=== PATIENT | female | born 1975 | race African-American/Black ===

== ENCOUNTER → 2021-11-13 | Outpatient (CLI) | payer BC ==
[~2021-11-13] MED LIST: HYDR-2765 PO; OMEP20CA16 PO; ZOLP5TAB5 PO
[2021-11-13 13:24] LABS: BASO # 0.1 x10^3/uL (0.0-0.2); BASO % 1 % (0-3); EOS % 0 % (0-3); HEMATOCRIT 35.1 % (36.0-47.0); HEMOGLOBIN 11.9 g/dL (12.0-15.5); LYMPH # 2.1 x10^3/uL (1.0-4.8); LYMPH % 30 % (24-48); MEAN CORPUSCULAR HEMOGLOBIN 33 pg (25-35); MEAN CORPUSCULAR HGB CONC 34 g/dL (31-37); MEAN CORPUSCULAR VOLUME 98 fL (79-100); MONO # 0.6 x10^3/uL (0.0-1.1); MONO % 8 % (0-9); NEUT # 4.4 x10^3/uL (1.8-7.7); NEUT % 61 % (31-73); PLATELET COUNT 358 x10^3/uL (140-400); RED BLOOD COUNT 3.59 x10^6/uL (3.50-5.40); RED CELL DISTRIBUTION WIDTH 13.7 % (11.5-14.5); WHITE BLOOD COUNT 7.2 x10^3/uL (4.0-11.0)
[2021-11-13 13:33] LABS: PROTHROMBIN TIME PATIENT 12.6 SEC (11.7-14.0)
[2021-11-13 13:44] LABS: ALBUMIN 3.2 g/dL (3.4-5.0); ALBUMIN/GLOBULIN RATIO 0.8 (1.0-1.7); CALCIUM 8.4 mg/dL (8.5-10.1); CREATININE 0.7 mg/dL (0.6-1.0); GFR 108.5; POTASSIUM 3.8 mmol/L (3.5-5.1); TOTAL BILIRUBIN 0.3 mg/dL (0.2-1.0); TOTAL PROTEIN 7.1 g/dL (6.4-8.2)
== END ==
LOC: SURGPAT 12:48
PROVIDERS: ATTEND Specialist
DX: Z01.812 Encounter for preprocedural laboratory examination (principal); K43.6 Other and unspecified ventral hernia with obstruction, without gangrene; E78.00 Pure hypercholesterolemia, unspecified; Z20.822 Contact with and (suspected) exposure to COVID-19; Z79.899 Other long term (current) drug therapy
CPT/HCPCS: 36415; 80053; 85025; 85610; U0003; U0005

== ENCOUNTER 2021-11-18 07:24 | Day surgery (SDC) | payer BC ==
[2021-11-13 13:10] VITALS: BP 137/83
[~2021-11-18] VITALS: Ht 152.4 cm; Wt 71.0 kg
[~2021-11-18 07:24] MED LIST changes: +BUPIVACAINE-EPI 0.5% 30 ML VIAL KIT. ONE; -HYDR-2765 PO; +HYDROmorphone 2 MG/ML INJ. IVP PRN; +IV RINGERS,LACTATED 1000ML 1,000 ML IV SCH; -OMEP20CA16 PO; +PROCHLORPERAZINE 10 MG/2 ML VIAL. IVP PRN; -ZOLP5TAB5 PO; +ceFAZolin SODIUM IV Push 1 GM VIAL. IVP PRN; +fentaNYL PF VIAL 100 MCG/2 ML VIAL IVP PRN
[2021-11-18 07:40] VITALS: BP 126/74
[2021-11-18] MEDS ORDERED: OMEP20CA16 PO (07:52)
[2021-11-18] MEDS ORDERED: ZOLP5TAB5 PO (07:53)
[2021-11-18] MEDS ORDERED: ROCURONIUM 50 MG/5 ML VIAL. ONE ×2 (08:14→10:16)
[2021-11-18] MEDS ORDERED: PROPOFOL 10 MG/ML (20ML) VIAL. IV ONE ×2 (08:14→10:45)
[2021-11-18] MEDS ORDERED: GLYCOPYRROLATE 1 MG/5 ML VIAL. ONE (08:14)
[2021-11-18] MEDS ORDERED: LIDOCAINE 2% PF 5 ML VIAL. ONE (08:14)
[2021-11-18] MEDS ORDERED: DEXAMETHASONE SOD PHOS 4 MG/ML VIAL ONE ×2 (08:14→08:36)
[2021-11-18] MEDS ORDERED: ONDANSETRON PF 4 MG/2 ML VIAL. ONE (08:14)
[2021-11-18] MEDS ORDERED: fentaNYL PF VIAL 100 MCG/2 ML VIAL ONE ×2 (08:15→10:47)
[2021-11-18] MEDS ORDERED: NEOSTIGMINE METHYLSULFATE 5 MG/5 ML SYRINGE. ONE (08:15)
[2021-11-18] MEDS ORDERED: MIDAZOLAM HCL/PF 2 MG/2 ML VIAL. ONE (08:15)
[2021-11-18] MEDS ORDERED: FAMOTIDINE 20 MG/2 ML VIAL ONE (08:38)
--- NOTE | 2021-11-18 09:04 | PREOP HP ---
DATE OF SERVICE: 11/18/2021 HISTORY OF PRESENT ILLNESS: The patient is referred by Dr. Nelson because of a painful mass of the abdomen. We obtained a history, which showed that she noticed in the mirror a mass in the upper abdomen about 2-3 inches above the umbilicus. She then went to a doctor and was told that she had a hernia. She states that it does get larger at times, it hurts and goes down when she lies down. She has not had any indigestion problems with that. PAST MEDICAL HISTORY: Shows normal childhood diseases. She states not to have had abdominal surgery. MEDICATIONS: Takes no medication for any diseases. ALLERGIES: She has no allergies. SOCIAL HISTORY: She does smoke about 2-3 cigarettes a day, but does not smoke more than that; does not use illicit drugs and does not drink alcohol. REVIEW OF SYSTEMS: Negative except for this mass, which is painful at times, she noticed this for a few weeks. It is not going away. PHYSICAL EXAMINATION: GENERAL: Shows an alert female, in no acute distress. HEAD, EYES, EARS, NOSE AND THROAT: Grossly normal. CHEST: Clear bilaterally to auscultation. HEART: Had no murmurs, heaves, friction rubs or thrills and the rate was 75 beats per minute and was regular. ABDOMEN: Soft. There was no organomegaly, no masses and no tenderness except for the epigastrium. On increase in intra-abdominal pressure, you could feel the mass pop out and with pressure, it goes back. This was somewhat painful, but not excruciating. There was no rebound or guarding. It seemed that she did have a mass in the abdomen. I could not totally reduce it, but it did get larger when she did increase the intra-abdominal pressure, but did not completely go away. PELVIC: Was not done. EXTREMITIES: As stated before, the extremities were grossly normal. IMPRESSION: Abdominal wall ventral hernia. PLAN: We will plan to repair this at a time that is satisfactory to her as we have discussed it at length. PEDRO/SAQIB JORGE: Alfreda TID: [id number] MTDChristiana
--- NOTE | 2021-11-18 09:22 | PDOC ---
SURGICAL PROGRESS NOTE DATE: 11/18/21 TIME: 09:22 no change in dictated H&P Vital Signs Vital Signs Date Time Temp Pulse Resp B/P (MAP) Pulse Ox O2 Delivery O2 Flow Rate FiO2 11/18/21 07:43 98.0 82 18 126/74 98 Room Air 98.0 Labs Laboratory Tests Test 11/18/21 07:37 Bedside Urine HCG, Qualitative Hcg negative (Negative) Laboratory Tests Test 11/18/21 07:37 Bedside Urine HCG, Qualitative Hcg negative (Negative) Justicifation of Admission Dx: Justifications for Admission: Justification of Admission Dx: Yes FINA NICOLE MD Nov 18, 2021 09:22
--- NOTE | 2021-11-18 09:25 | PDOC ---
SURGICAL PROGRESS NOTE DATE: 11/18/21 TIME: 09:23 Op Note: Surgeon..........................................Andrea Pre op diag......................................incarcerated ventral hernia Post op diag....................................same Procedure.......................................Repair incarc ventral hernia with mesh Anesthesia......................................general Drains.............................................none Blood loss.......................................10cc Fluids.............................................see anesthesia sheet Condition........................................satisfactory Vital Signs Vital Signs Date Time Temp Pulse Resp B/P (MAP) Pulse Ox O2 Delivery O2 Flow Rate FiO2 11/18/21 07:43 98.0 82 18 126/74 98 Room Air 98.0 Labs Laboratory Tests Test 11/18/21 07:37 Bedside Urine HCG, Qualitative Hcg negative (Negative) Laboratory Tests Test 11/18/21 07:37 Bedside Urine HCG, Qualitative Hcg negative (Negative) Justicifation of Admission Dx: Justifications for Admission: Justification of Admission Dx: Yes FINA NICOLE MD Nov 18, 2021 09:25
[2021-11-18] MEDS ORDERED: ESMOLOL 100 MG/10 ML VIAL. IVP ONE (09:56)
[2021-11-18] MEDS ORDERED: ceFAZolin SODIUM IV Push 1 GM VIAL. IVP ONE ×3 (10:30→10:36)
[2021-11-18] MEDS ORDERED: SEVOFLURANE 61 TO 120 MINUTES. IH ONE (10:30)
[2021-11-18] MEDS ORDERED: KETOROLAC 30 MG/ML VIAL. ONE (10:33)
--- NOTE | 2021-11-18 11:24 | DISCH ---
DISCHARGE INSTRUCTIONS Condition on Discharge Condition on Discharge: Stable Activity After Discharge Activity Instructions for Disc: Avoid exertion Bathing Instructions: Shower-keep dressing dry Driving Instructions after Dis: Do not drive today, No driving for 2 weeks Diet after Discharge Diet after Discharge: Clear Liquid Additional Diet Restrictions: may advance to pre op0 diets prn Wound Incision Care Other wound/incision instructi: May shower and leave dressing on as long as possible. Follow-Up Follow up with: call and make appt to see me in 10-14 days FINA NICOLE MD Nov 18, 2021 11:24
[2021-11-18] MEDS ORDERED: HYDR-2765 PO (11:29)
[2021-11-18] MEDS ORDERED: HYDROcodone/APAP 7.5/325MG 1 TAB TABLET PO ONE (11:30)
[2021-11-18] MEDS ORDERED: PROCHLORPERAZINE 10 MG/2 ML VIAL. ONE (11:33)
[2021-11-18] MEDS ORDERED: MORPHINE SULFATE 2 MG/ML INJ. ONE (11:34)
[2021-11-18] MEDS: MORPHINE SULFATE 2 MG/ML INJ. IVP PRN ×2 (11:37→12:16)
[2021-11-18] MEDS ORDERED: SCOPOLAMINE 1.5MG PATCH. TD ONE (12:00)
[2021-11-18 12:30] VITALS: BP 112/62
--- NOTE | 2021-11-18 15:02 | OP ---
DATE OF SURGERY: 11/18/2021 SURGEON: Dr. Mendez. PREOPERATIVE DIAGNOSIS: Incarcerated ventral hernia. POSTOPERATIVE DIAGNOSIS: Incarcerated ventral hernia x 2. ANESTHESIA: General. PROCEDURE: Repair of two separate incarcerated ventral hernias with mesh. TECHNIQUE: Under general anesthesia, the patient was properly prepped and draped in routine fashion. The mass in the midline abdominal wall above the umbilicus was noted. This was marked prior to surgery. We made a longitudinal incision about 4 inches in length over the area that had been previously marked in the midline. We went through the skin with a 15 blade and then with a 15 blade and cautery, we were able to go down to what was in fact the hernia sac. The hernia sac included what looked like preperitoneal fat coming through a small opening. The mass seemed to me smaller than what we saw clinically. We slowly dissected this out, identified the mass and there was about a 1.5 cm mass opening in the fascia midline where the preperitoneal fat was coming through. We did not have a sac as such, so the peritoneal contents was not there and hernia opening was small. We did notice below this some unusual fat, dissected this down and extended the incision inferiorly and identified another mass, this was larger and this was in fact preperitoneal fat also through a separate hernia inferior to this, they were by about 3 cm. We decided not to open the area up completely as we thought it would be better not to do that and we get better repair. No other defects in the fascia were noted. The sacs, both then were dissected free. The larger inferior wound, the opening was about 3/4th of an inch and we slowly dissected the preperitoneal fat from that, inverted it, put it back in the wound and then used one of these umbilical Bard patches to go under the fascia, but it was over the peritoneum as we did not enter the peritoneal cavity. We then placed this in place, we got it flat against the anterior abdominal wall and then placed three #0 Prolene sutures there to close the wound. We closed it longitudinally from side to side because of the fascia above and we did not want to have repair of this area, it would make weaker so, she could have another hernia. As such, the wounds were closed [id number]. This having been done, the patch in place with the tail coming up, we cut off the tail and we did incorporate the superior portion of this and again the sutures were held against the anterior abdominal wall. These sutures were tied and they were not cut however. A clamp was placed over the . We then identified the more cephalad mass, dissected it free and inverted it and then using 0 Prolene suture closed this over a mesh that we had placed against the anterior abdominal wall. This was also not in the peritoneum and it was between the preperitoneal fat and fascia. This was a space that the mesh was put. These 2 sutures were tied and the procedure was basically terminated. We did inject 0.5% Marcaine with epinephrine into the fascia around this area. The sutures were cut and the there was a good closure with no defects and all was well. We irrigated the wound with saline and then approximated the deep subcu with 4-0 Vicryl and then closed the more superficial layers with 4-0 Vicryl. The skin was closed using 4-0 interrupted nylon. The procedure was now terminated as sterile Tegaderm dressings were applied. The blood loss was about 10 mL. Fluids given can be obtained from the anesthesia sheet. No drains were used and the condition of the patient was satisfactory as she has returned to the recovery room. TABATHA DR: Alfreda TID: [id number]
== END 2021-11-18 13:12 | disposition home or self-care (01) ==
LOC: SURG 07:24 → EDUNIT# 09:00 → SURG 13:12
PROVIDERS: ATTEND Specialist
DX: K43.6 Other and unspecified ventral hernia with obstruction, without gangrene (principal); E78.00 Pure hypercholesterolemia, unspecified; K21.9 Gastro-esophageal reflux disease without esophagitis; Z87.891 Personal history of nicotine dependence; Z79.899 Other long term (current) drug therapy; Z98.890 Other specified postprocedural states
CPT/HCPCS: 49561; 49568; 81025; A4209; A4930; A6258; A6402; C1781; J0690; J0780; J1100; J1885; J2250; J2270; J2405; J2704; J2710; J3010; J3490